=== PATIENT | female | born 1965 | race Two or more races ===

== ENCOUNTER 2018-09-09 09:32 | Outpatient (CLI) | payer OTHER ==
[~2018-09-09 09:32] MED LIST: BUDEPRION XL300 MG PO; PRISTIQ 50 MG; SKELAXIN800 MG PO; WELLBUTRIN XL300 MG PO
== END 2018-09-09 09:36 | disposition home or self-care (01) ==
LOC: SONOGRAMA 09:32
DX: E04.2 Nontoxic multinodular goiter (principal)